=== PATIENT | male | born 1990 | race Caucasian/White ===

== ENCOUNTER 2017-12-30 20:55 | Inpatient (IN) | payer MEDICAID, OTHER ==
[~2017-12-30] VITALS: Ht 177.8 cm; Wt 72.3 kg
[2017-12-30] MEDS ORDERED: VENL50TA44 PO (21:02)
[2017-12-30] MEDS ORDERED: LORazepam 2 MG TABLET PO ONE (21:30)
[2017-12-30 21:43] LABS: ANION GAP 14 mmol/L (8-16); CALCIUM, TOTAL 9.3 mg/dL (8.8-10.5); CARBON DIOXIDE 27 mmol/L (22-29); CHLORIDE 100 mmol/L (98-107); CREATININE 1.06 mg/dL (0.60-1.30); GLOMERULAR FILTR. RATE CALC > 60 mL/min (>60); GLUCOSE,RANDOM 86 mg/dL (70-110); POTASSIUM 3.3 mmol/L (3.5-5.1); SODIUM SERUM 141 mmol/L (136-145); UREA NITROGEN, BLOOD 13 mg/dL (7-18)
[2017-12-30 21:49] LABS: ALANINE AMINOTRANSFERASE 19 U/L (12-78); ALBUMIN 4.7 g/dL (3.4-5.0); ALKALINE PHOSPHATASE 82 U/L (46-116); ASPARTATE AMINOTRANSFERASE 14 U/L (15-37); TOTAL PROTEIN, SERUM 7.8 g/dL (6.4-8.2)
[2017-12-30 21:51] LABS: BASOPHILS % (AUTO) 0.5 % (0.0-2.0); EOSINOPHILS % (AUTO) 1.4 % (1.0-6.0); HEMATOCRIT 36.5 % (41-53); HEMOGLOBIN 11.6 g/dL (13.5-17.5); LYMPHOCYTES # (AUTO) 2.6 K/uL (1.0-4.8); LYMPHOCYTES % (AUTO) 30.9 % (22.0-44.0); MEAN CORPUSCULAR HEMOGLOBIN 18.8 pg (26.0-34.0); MEAN CORPUSCULAR HGB CONC 31.9 G/dL (31.0-37.0); MEAN CORPUSCULAR VOLUME 59 fL (80-100); MONOCYTES # (AUTO) 0.6 K/uL (0.1-1.0); MONOCYTES % (AUTO) 6.9 % (2.0-9.0); NEUTROPHILS % (AUTO) 60.3 % (40.0-70.0); RED BLOOD CELL COUNT(AUTO) 6.19 MIL/uL (4.50-5.90)
[2017-12-30] MEDS ORDERED: DiphenhydrAMINE HCL 50 MG/ML VIAL IM ONE (22:15)
[2017-12-30] MEDS ORDERED: HALOPERIDOL LACTATE 5 MG/ML VIAL IM ONE (22:15)
[2017-12-30] MEDS ORDERED: ZOLPIDEM TARTRATE 10 MG TABLET PO PRN (22:30)
[2017-12-30] MEDS ORDERED: HALOPERIDOL 5 MG TABLET PO PRN (22:30)
[2017-12-30] MEDS ORDERED: LORazepam 2 MG TABLET PO PRN (22:30)
[2017-12-30 22:37] LABS: PLATELET COUNT (AUTO) 240 K/uL (150-450)
[2017-12-31 01:27] VITALS: BP 116/68
[2017-12-31 08:00] VITALS: BP 92/61
[2017-12-31 08:49] VITALS: BP 102/61
[2017-12-31] MEDS ORDERED: ALBUTEROL SULFATE HFA 90 MCG/PUFF 8 GM INHALER IH PRN (09:45)
[2017-12-31] MEDS ORDERED: PETROLATUM,WHITE 71 GM JELLY TP PRN (09:45)
[2017-12-31] MEDS ORDERED: ACETAMINOPHEN 325 MG TABLET PO PRN (09:45)
[2017-12-31] MEDS ORDERED: POTASSIUM CHLORIDE 20 MEQ ER TABLET PO ONE (09:45)
[2017-12-31] MEDS ORDERED: IBUPROFEN 600 MG TABLET PO PRN (09:45)
[2017-12-31] MEDS ORDERED: CloNIDine HCL 0.1 MG TABLET PO PRN (09:45)
[2017-12-31] MEDS ORDERED: ONDANSETRON HCL 4 MG TABLET PO PRN (09:45)
[2017-12-31] MEDS ORDERED: BACITRACIN 28.4 GM OINTMENT TP PRN (09:45)
[2017-12-31] MEDS ORDERED: MAGNESIUM HYDROXIDE SUSPENSION 30 ML UDCUP PO PRN (09:45)
[2017-12-31] MEDS ORDERED: BENZOCAINE/MENTHOL LOZENGE MM PRN (09:45)
[2017-12-31] MEDS ORDERED: MAG HYDROX/AL HYDROX/SIMETH ES 30 ML SUSPENSION UDCUP PO PRN (09:45)
[2017-12-31] MEDS ORDERED: LOPERAMIDE HCL 2 MG CAPSULE PO PRN (09:45)
[2017-12-31] MEDS: VENLAFAXINE HCL 75 MG ER CAPSULE PO SCH (10:59)
[2017-12-31 16:23] VITALS: BP 110/64
[2018-01-01 06:15] LABS: POTASSIUM 4.4 mmol/L (3.5-5.1)
[2018-01-01 08:44] VITALS: BP 127/83
[2018-01-01] MEDS: VENLAFAXINE HCL 75 MG ER CAPSULE PO SCH (10:27)
[2018-01-01] MEDS: FERROUS SULFATE 325 MG EC TABLET PO SCH (16:36)
[2018-01-01 16:44] VITALS: BP 120/60
[2018-01-02] MEDS: FERROUS SULFATE 325 MG EC TABLET PO SCH (07:04)
[2018-01-02] MEDS: VENLAFAXINE HCL 75 MG ER CAPSULE PO SCH (07:41)
[2018-01-02] MEDS ORDERED: VENL-67 PO (08:55)
[2018-01-02 09:15] VITALS: BP 149/93
[2018-01-02] MEDS ORDERED: FERR-89 PO (10:11)
== END 2018-01-02 13:20 | disposition home or self-care (01) | DRG 751 ==
LOC: EMS 20:58 → 3EC 23:55
DX: F33.2 Major depressive disorder, recurrent severe without psychotic features (principal); R45.851 Suicidal ideations; E87.6 Hypokalemia; D50.9 Iron deficiency anemia, unspecified; F10.10 Alcohol abuse, uncomplicated; F43.12 Post-traumatic stress disorder, chronic; G47.00 Insomnia, unspecified; F12.90 Cannabis use, unspecified, uncomplicated; Z71.51 Drug abuse counseling and surveillance of drug abuser; Z87.820 Personal history of traumatic brain injury; Z91.048 Other nonmedicinal substance allergy status; Z79.899 Other long term (current) drug therapy
CPT/HCPCS: 83540; 83550; 84132; G0480; J1200; J1630